=== PATIENT | female | born 1950 | race Caucasian/White ===

== ENCOUNTER → 2016-12-03 | Outpatient (CLI) | payer OTHER ==
[~2016-12-03] MED LIST: ALBUTEROL17 GM INH; ALENDRONATE SOD70 M1 PO; ASPIRIN EC81 M1 PO; DESYREL150 M1 PO; EFFEXOR PO; FAMOTIDINE PO; FIBERCON625 MG PO; FLUTICASONE PROPIONA; LIPITOR PO; LISINOPRIL PO; LOPID600 MG PO; LOSARTAN-HCTZ1 EAC1 PO; LOSARTAN-HCTZ1 EACH PO; MEVACOR; MOTRIN400 MG PO; OMEPRAZOLE40 MG PO; PROZAC PO; REGLAN10 MG PO; ROBAXIN500 MG PO; SYNTHROID PO; SYNTHROID0.1 MG DOB; SYNTHROID125 PO; TRAZODONE; TRAZODONE PO; VICODIN 5/1 TAB 5/50 PO; VITAMIN D1000 UNIT PO; VITAMIN D250000 UNIT PO; VOLTAREN75 MG PO; ZANAFLEX PO; ZOFRAN8 MG PO; ZOLOFT50 MG PO
--- NOTE | ~2016-12-03 | CT6 ---
[facility] A Service of [facility] RADIOLOGY TEXT RESULTS PATIENT: JER[facility] GLOVER [facility] UN[facility] #: [id number] AGE: [address]: Mayco Ely MD SEX: F ORDER DR: [id number] [place] [address] [facility]. [place], [place] [address] [id number] O MR#: [id number] Acc #: [id number] NAME: JEREMY GLOEVR : 1950 SEX: F STUDY DATE/TIME: 12/03/2016 10:01 UNIT: [facility] ROOM: STUDY DESCRIPTION: CT Abdomen WWo Cont Attending Physician: Mayco Ely M.D. Referring Physician: Mayco Ely M.D. Ordering Physician: Mayco Ely M.D. Primary Care Physician: Rafael Lindo [facility] MEDICAL IMAGING REPORT This report is preliminary unless electronic signature is present EXAM CT abdomen with and without contrast INDICATION Indeterminate liver and right renal lesion on previous CT. Followup. PROCEDURE Unenhanced CT of the abdomen. Multiphase postcontrast CT of the abdomen with attention to the liver. This CT exam was performed with one or more of the following radiation dose reduction techniques: automatic exposure control, adjustment of mA and/or kV according to patient size, and iterative reconstruction. COMPARISON 05/21/2016 FINDINGS ABDOMEN WITHOUT CONTRAST: Included lung bases are clear. Previous cholecystectomy. There is a 2 mm nonobstructing calculus in the upper pole of the left kidney. ABDOMEN WITH CONTRAST: The liver is not frankly cirrhotic in morphology. No liver mass. Thin nonenhancing subcapsular collection posterior right hepatic lobe, measuring approximately 2.6 x 0.9 cm is unchanged from the prior. Hepatic vessels are patent. Spleen, adrenal glands and pancreas unremarkable. Redemonstration of a 6 mm low-attenuation lesion in the right mid kidney. This is unchanged from the prior, too small to definitively characterize. Bowel loops are nondilated. 1.8 cm fat-containing umbilical hernia. No aggressive appearing bone lesion. STS. [facility] A Service of [facility] RADIOLOGY TEXT RESULTS PATIENT: JEREMY GLOVER LOCATION: [facility] : 48 UNIT #: [id number] AGE: [address]: Mayco Ely MD SEX: F ORDER DR: IMPRESSION 1. No acute findings. 2. Stable small subcapsular fluid collection along the posterior right hepatic lobe. No enhancing liver lesion. 3. Stable 6 mm lesion in the right kidney too small to definitively characterize but probably a small benign cyst. 4. Small nonobstructing calculus in the left kidney. Dictated by... Eligio Lucero M.D. THIS IS AN ELECTRONICALLY VERIFIED REPORT Eligio Lucero M.D. at 12/04/2016 8:28 AM Cristofer TD: 12/03/2016 16:58 JOB #: [id number] MEDICAL IMAGING REPORT Page 1 of 1 COPY
== END | disposition home or self-care (01) ==
LOC: CCAT 09:11
PROVIDERS: Family Medicine
DX: K76.9 Liver disease, unspecified (principal); N28.1 Cyst of kidney, acquired; N28.89 Other specified disorders of kidney and ureter; N20.0 Calculus of kidney
CPT/HCPCS: 74170; 82565; Q9967